=== PATIENT | female | born 1965 | race Caucasian/White ===

== ENCOUNTER 2023-07-13 14:08 | Outpatient (OUT) | payer OTHER, SELFPAY ==
--- NOTE | 2023-07-13 14:17 | XR_ITS ---
The [address] [address] Patient Name: ROSALVA SANDY MRN: [id number] date: 1965 Sex: F Assigned Patient Location: [facility] Current Patient Location: RAD Accession/Order Number: [id number] Exam Date: 07/13/2023 14:24 Report Date: 07/13/2023 15:19 At the request of: MANE GONZALEZ Procedure: XR chest 2V EXAMINATION: XR chest 2V HISTORY: Acute Bronchitis J20.9 COMPARISON: No relevant comparison available. TECHNIQUE: PA and lateral FINDINGS: LUNGS: No significant pulmonary parenchymal abnormalities. VASCULATURE: No increased pulmonary vasculature. PLEURA: No pneumothorax, effusion, or pleural thickening. CARDIAC: No cardiomegaly or cardiac silhouette abnormality. MEDIASTINUM: No visible mass or adenopathy. BONES: No fracture or visible bone lesion. OTHER: Negative. XR/XR chest 2V IMPRESSION: No acute cardiopulmonary process Electronically authenticated by: DI WOODSON Date: 07/13/2023 15:19
== END 2023-07-13 14:09 | disposition home or self-care (01) ==
LOC: RAD 14:11
PROVIDERS: PCP Internal Medicine; Visit Provider Internal Medicine
DX: J20.9 Acute bronchitis, unspecified (principal)
CPT/HCPCS: 71046

== ENCOUNTER 2023-07-29 16:38 | Emergency (ER) | payer OTHER, SELFPAY ==
[2023-07-29 16:43] VITALS: BP 142/88; PULSE 96; RESP 20; TEMP 36.7; O2SAT 97; BMI 39.0
[2023-07-29 16:45] VITALS: O2SAT 97
[2023-07-29 16:50] VITALS: O2SAT 99
--- NOTE | 2023-07-29 16:53 | ED.HEATRA1 ---
Documented by User: LUIS DANIEL Bourgeois 07/29/23 17:53 HPI - Head Injury General Chief complaint: Head Injury Stated complaint: FALL HEAD INJURY Time Seen by Provider: 07/29/23 16:43 Source: patient Mode of arrival: walk-in Limitations: no limitations History of Present Illness HPI Narrative: Patient is a 57-year-old female who presents to the emergency department after head injury last night. She states she tripped over the dog and fell forward hitting her nose and forehead. She states she has had a headache since the fall. She slept without incident and went to work today. She states she continues to have headache, nausea. She denies visual changes, neck pain, peripheral paresthesias. She states her doctor's office referred her to the ER for imaging because it would take a week for her PCP to order the test. She states that Dr. Dawson's office sent her to the ER to get checked for concussion and get a neck x-ray . She has had no epistaxis, No dental injury. She states the tip of her nose feels numb . Related Data Previous Rx's Medication Instructions Recorded promethazine 25 mg tablet 25 mg PO Q6H PRN nausea and 07/29/23 vomiting #12 tabs Allergies Allergy/AdvReac Type Severity Reaction Status Date / Time heparin Allergy Unknown Verified 07/29/23 17:32 NSAIDS (Non-Steroidal Allergy Unknown Verified 07/29/23 17:32 Anti-Inflamma opium (anthroposophic) Allergy Unknown Verified 07/29/23 17:32 ondansetron [From Zofran] AdvReac Mild Headache Verified 07/29/23 17:32 Review of Systems ROS Constitutional Denies: fever or chills Eyes Denies: change in vision Ears, nose, mouth, and throat Denies: throat pain or neck pain Cardiovascular Denies: chest pain Respiratory Denies: shortness of breath or cough Gastrointestinal Reports: nausea; Denies: vomiting Genitourinary Denies: painful urination Musculoskeletal Denies: back pain or neck pain Integumentary/Breast Denies: rash Neurological Reports: headache Endocrine Denies: excessive urination PFSH PFSH Social History Smoking status: Former smoker Exam Narrative Exam Narrative: Gen.: Awake, alert, in no distress Head: Normocephalic, atraumatic ENT: Moist mucous membranes; Cervical spine nontender with full range of motion, abrasion noted to the tip of the nose and nasal bridge.No epistaxis or Septal hematoma noted Respiratory: No respiratory distress, lungs clear bilaterally Cardio: Regular rate and rhythm Back: No bony tenderness of the C-spine, T-spine or L-spine Extremities: Moves extremities equally, no injuries noted Psych: Normal mood and affect Neuro: No focal neuro deficit Skin: Warm, dry, intact Constitutional Vital Signs, click to edit/add: Last Vital Signs Temp 98.1 F 07/29/23 16:43 Pulse 96 H 07/29/23 16:43 Resp 20 07/29/23 16:43 BP 142/88 H 07/29/23 16:43 Pulse Ox 98 07/29/23 17:31 O2 Del Method Room Air 07/29/23 16:50 Course Vital Signs Vital signs: Vital Signs Temperature 98.1 F 07/29/23 16:43 Pulse Rate 96 H 07/29/23 16:43 Respiratory Rate 20 07/29/23 16:43 Blood Pressure 142/88 H 07/29/23 16:43 Pulse Oximetry 97 07/29/23 16:43 Oxygen Delivery Method Room Air 07/29/23 16:43 Temperature 98.1 F 07/29/23 16:43 Pulse Rate 96 H 07/29/23 16:43 Respiratory Rate 20 07/29/23 16:43 Blood Pressure 142/88 H 07/29/23 16:43 Pulse Oximetry 98 07/29/23 17:31 Oxygen Delivery Method Room Air 07/29/23 16:50 MDM - Head Injury MDM Narrative Medical decision making narrative: CT of the head, facial bones and cervical spine with no evidence of acute process. There is a lytic lesion to the right mandible consistent with a periapical cyst and radiologist recommends a oral surgery follow-up. Patient refused Zofran in the ER, she states it gives her headache. She was agreeable to Tylenol. She will be discharged home with Phenergan. Follow-up with PCP and return to the ER if symptoms change or worsen, closed head injury instructions given for discharge. Medical Records Attestation: I reviewed the patient's medical records. Lab Data Attestation: I reviewed the patient's lab results. Imaging Data CT scan - head: Attestation: I have reviewed the pertinent imaging results. Discharge Plan Discharge Chief Complaint: Head Injury Clinical Impression: Closed head injury Patient Disposition: Home, Self-Care Time of Disposition Decision: 17:51 Condition: Good Prescriptions / Home Meds: New promethazine 25 mg tablet 25 mg PO Q6H PRN (Reason: nausea and vomiting) Qty: 12 0RF Instructions: Head Injury (ED) Additional Instructions: Please follow up with your dentist regarding the CT findings in your jaw Stand Alone Forms: Portal Instructions Referrals: MANE GONZALEZ [Primary Care Provider] - 1 week Discharge Date/Time: 07/29/23 17:56 Documented by User: Giovany Solis MD 07/29/23 20:48 HPI - Head Injury General Chief complaint: Head Injury Stated complaint: FALL HEAD INJURY Time Seen by Provider: 07/29/23 16:43 Related Data Previous Rx's Medication Instructions Recorded promethazine 25 mg tablet 25 mg PO Q6H PRN nausea and 07/29/23 vomiting #12 tabs Allergies Allergy/AdvReac Type Severity Reaction Status Date / Time heparin Allergy Unknown Verified 07/29/23 17:32 NSAIDS (Non-Steroidal Allergy Unknown Verified 07/29/23 17:32 Anti-Inflamma opium (anthroposophic) Allergy Unknown Verified 07/29/23 17:32 ondansetron [From Zofran] AdvReac Mild Headache Verified 07/29/23 17:32 PFSH PFSH Social History Smoking status: Former smoker Exam Constitutional Vital Signs, click to edit/add: Last Vital Signs Temp 98.1 F 07/29/23 16:43 Pulse 96 H 07/29/23 16:43 Resp 20 07/29/23 16:43 BP 142/88 H 07/29/23 16:43 Pulse Ox 98 07/29/23 17:31 O2 Del Method Room Air 07/29/23 16:50 Course Vital Signs Vital signs: Vital Signs Temperature 98.1 F 07/29/23 16:43 Pulse Rate 96 H 07/29/23 16:43 Respiratory Rate 20 07/29/23 16:43 Blood Pressure 142/88 H 07/29/23 16:43 Pulse Oximetry 97 07/29/23 16:43 Oxygen Delivery Method Room Air 07/29/23 16:43 Temperature 98.1 F 07/29/23 16:43 Pulse Rate 96 H 07/29/23 16:43 Respiratory Rate 20 07/29/23 16:43 Blood Pressure 142/88 H 07/29/23 16:43 Pulse Oximetry 98 07/29/23 17:31 Oxygen Delivery Method Room Air 07/29/23 16:50 MDM - Head Injury MDM Narrative Medical decision making narrative: CT of the head, facial bones and cervical spine with no evidence of acute process. There is a lytic lesion to the right mandible consistent with a periapical cyst and radiologist recommends a oral surgery follow-up. Patient refused Zofran in the ER, she states it gives her headache. She was agreeable to Tylenol. She will be discharged home with Phenergan. Follow-up with PCP and return to the ER if symptoms change or worsen, closed head injury instructions given for discharge. I, Dr Solis, have reviewed the above progress note and course of action in the ER; agree with the above. I have gone over history and physical, and discussed disposition and treatment plan with the patient. Discharge Plan Discharge Chief Complaint: Head Injury Clinical Impression: Closed head injury Patient Disposition: Home, Self-Care Time of Disposition Decision: 17:51 Condition: Good Prescriptions / Home Meds: New promethazine 25 mg tablet 25 mg PO Q6H PRN (Reason: nausea and vomiting) Qty: 12 0RF Instructions: Head Injury (ED) Additional Instructions: Please follow up with your dentist regarding the CT findings in your jaw Stand Alone Forms: Portal Instructions Referrals: MANE GONZALEZ [Primary Care Provider] - 1 week Discharge Date/Time: 07/29/23 17:56
--- NOTE | 2023-07-29 17:08 | CT_ITS ---
The [address] [address] Patient Name: ROSALVA SANDY MRN: [id number] date: 1965 Sex: F Assigned Patient Location: ER Current Patient Location: ED.MAIN Accession/Order Number: [id number] Exam Date: 07/29/2023 16:58 Report Date: 07/29/2023 17:34 At the request of: BLANKA FARLEY Procedure: CT facial bones wo con CT head/brain wo con, CT facial bones wo con, CT cervical spine wo con, 07/29/2023 4:58 PM EST INDICATION: Fall, head injury COMPARISON: There is no appropriate prior study for comparison. TECHNIQUE: Axial images of 3 mm are obtained from the base of the skull to vertex completed with Axial images of 2 mm are obtained from base of skull to T2 without contrast. Dose reduction techniques were achieved by using automated exposure control and/or adjustment of mA and/or kV according to patient size and/or use of iterative reconstruction technique. FINDINGS: The cerebral and cerebellar sulci as well as ventricular system are appropriate for age. There is no intracranial mass, mass effect, midline shift, intra or extra-axial fluid collection. No acute territorial infarction or hemorrhage is noted. There is mucosal thickening within the left maxillary sinus. The visualized portions of orbits, mastoid air cells as well as remainder of paranasal sinuses are unremarkable. There is no suspicious osteolytic or osteoblastic lesion. No acute fracture or dislocation is noted. Multilevel degenerative changes of cervical spine are noted. There is an osteolytic lesion posterior to the first molar in the body of mandible measuring approximately 1.3 x 1.5 cm. There is breach of inner wall. The cyst involves the right mandibular canal. IMPRESSION: No acute intracranial process is identified. No acute fracture. Osteolytic lesion in the body of the right mandible posterior to the first molar most likely periapical or follicular cyst. There is breach of inner wall. Oral surgery consultation is recommended. Electronically authenticated by: KALANI SANCHEZ Date: 07/29/2023 17:34
--- NOTE | 2023-07-29 17:08 | CT_ITS ---
The [address] [address] Patient Name: ROSALVA SANDY MRN: [id number] date: 1965 Sex: F Assigned Patient Location: ER Current Patient Location: .MAIN Accession/Order Number: [id number] Exam Date: 07/29/2023 16:58 Report Date: 07/29/2023 17:34 At the request of: BLANKA FARLEY Procedure: CT head/brain wo con CT head/brain wo con, CT facial bones wo con, CT cervical spine wo con, 07/29/2023 4:58 PM EST INDICATION: Fall, head injury COMPARISON: There is no appropriate prior study for comparison. TECHNIQUE: Axial images of 3 mm are obtained from the base of the skull to vertex completed with Axial images of 2 mm are obtained from base of skull to T2 without contrast. Dose reduction techniques were achieved by using automated exposure control and/or adjustment of mA and/or kV according to patient size and/or use of iterative reconstruction technique. FINDINGS: The cerebral and cerebellar sulci as well as ventricular system are appropriate for age. There is no intracranial mass, mass effect, midline shift, intra or extra-axial fluid collection. No acute territorial infarction or hemorrhage is noted. There is mucosal thickening within the left maxillary sinus. The visualized portions of orbits, mastoid air cells as well as remainder of paranasal sinuses are unremarkable. There is no suspicious osteolytic or osteoblastic lesion. No acute fracture or dislocation is noted. Multilevel degenerative changes of cervical spine are noted. There is an osteolytic lesion posterior to the first molar in the body of mandible measuring approximately 1.3 x 1.5 cm. There is breach of inner wall. The cyst involves the right mandibular canal. IMPRESSION: No acute intracranial process is identified. No acute fracture. Osteolytic lesion in the body of the right mandible posterior to the first molar most likely periapical or follicular cyst. There is breach of inner wall. Oral surgery consultation is recommended. Electronically authenticated by: KALANI SANCHEZ Date: 07/29/2023 17:34
--- NOTE | 2023-07-29 17:08 | CT_ITS ---
The [address] [address] Patient Name: ROSALVA SANDY MRN: [id number] date: 1965 Sex: F Assigned Patient Location: ER Current Patient Location: ED.MAIN Accession/Order Number: [id number] Exam Date: 07/29/2023 16:58 Report Date: 07/29/2023 17:34 At the request of: BLANKA FARLEY Procedure: CT cervical spine wo con CT head/brain wo con, CT facial bones wo con, CT cervical spine wo con, 07/29/2023 4:58 PM EST INDICATION: Fall, head injury COMPARISON: There is no appropriate prior study for comparison. TECHNIQUE: Axial images of 3 mm are obtained from the base of the skull to vertex completed with Axial images of 2 mm are obtained from base of skull to T2 without contrast. Dose reduction techniques were achieved by using automated exposure control and/or adjustment of mA and/or kV according to patient size and/or use of iterative reconstruction technique. FINDINGS: The cerebral and cerebellar sulci as well as ventricular system are appropriate for age. There is no intracranial mass, mass effect, midline shift, intra or extra-axial fluid collection. No acute territorial infarction or hemorrhage is noted. There is mucosal thickening within the left maxillary sinus. The visualized portions of orbits, mastoid air cells as well as remainder of paranasal sinuses are unremarkable. There is no suspicious osteolytic or osteoblastic lesion. No acute fracture or dislocation is noted. Multilevel degenerative changes of cervical spine are noted. There is an osteolytic lesion posterior to the first molar in the body of mandible measuring approximately 1.3 x 1.5 cm. There is breach of inner wall. The cyst involves the right mandibular canal. IMPRESSION: No acute intracranial process is identified. No acute fracture. Osteolytic lesion in the body of the right mandible posterior to the first molar most likely periapical or follicular cyst. There is breach of inner wall. Oral surgery consultation is recommended. Electronically authenticated by: KALANI SANCHEZ Date: 07/29/2023 17:34
[2023-07-29 17:11] VITALS: O2SAT 98
[2023-07-29] MEDS: ACETAMINOPHEN 500 MG TABLET 1000 MG PO (17:15)
[2023-07-29 17:31] VITALS: O2SAT 98
== END 2023-07-29 17:56 | disposition home or self-care (01) ==
PROVIDERS: Emergency Provider Emergency Medicine; PCP Internal Medicine
DX: S09.8XXA Other specified injuries of head, initial encounter (principal); W01.0XXA Fall on same level from slipping, tripping and stumbling without subsequent striking against object, initial encounter; Z87.891 Personal history of nicotine dependence
CPT/HCPCS: 70450; 70486; 72125; 99284